=== PATIENT | female | born 1985 | race Two or more races ===

== ENCOUNTER 2020-05-31 17:04 | Emergency (ER) | payer OTHER ==
[~2020-05-31] VITALS: Ht 167.6 cm; Wt 89.2 kg
--- NOTE | 2020-05-31 17:09 | PHYS DOC ---
Past History Past Medical History: Hypothyroid (JOSE MEJIA DO) Past Surgical History: Other (Thyroidectomy) (JOSE MEJIA DO) Adult General Chief Complaint Chief Complaint: SEIZURE HPI HPI Patient is a 34-year-old female who presents for seizure-like activity. Patient reports feeling fatigued for past 48 hours. Nothing known makes better or worse. Patient denies any pain. Patient reports being nauseous all day and was outside in the driveway when she started feeling lightheaded and dizzy. Patient reports sitting down because she does not feel well. Patient unsure of events afterwards. She reports gaining enough strength to call a friend to come and help her. On arrival, friend was concerned given patient's poor appearance and called EMS. Local fire department arrived first and reported less than 1 minute of seizure-like activity that resolved without any intervention. Patient otherwise stable and post ictal appearing in route to our facility for evaluation. On arrival, patient continues to feel fatigued, admits recent dizziness, chills, rhinorrhea, nausea without any changes in bladder or bowel function, no vomit, no urinary symptoms. Denies any recent alcohol or illicit drug use. Takes levothyroxine daily stemming from prior thyroidectomy from noncancerous causes, last time TSH was checked was greater than 1-3MO ago (JOSE MEJIA DO) HPI Pt. reports a similar incident in the past when she got dehydrated and had a viral infection. 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 Patient's dog Toaga- Bull dog recent had a upper respiratory infection which was treated with Carbomax antibiotic. (JOHANN BROWER MD) Review of Systems Review of Systems Fourteen body systems of review of systems have been reviewed. See HPI for pertinent positives and negative responses, other lehman all other systems are negative, non-pertinent or non-contributory (JOSE MEJIA DO) Physical Exam Physical Exam Constitutional: Pt is oriented to person, place, and time. Pt appears well- developed and well-nourished. Appears postictal HENT: Head: Normocephalic and atraumatic. Mouth/Throat: Oropharynx is clear and moist. No hematomas or lacerations or abrasions to face or scalp OP clear, no blood, no malocclusion, dentition intact, no trauma to the tongue Nares clear, no nasal septal hematoma TMs clear, no hemotympanum Midface stable Eyes: Conjunctivae and EOM are normal. Pupils are equal, round, and reactive to light. Neck: C-spine midline nontender, no step-offs Cardiovascular: Normal rate, regular rhythm and normal heart sounds. Pulmonary/Chest: Effort normal and breath sounds normal. No respiratory distress. No wheezes. CTA bilaterally Abdominal: Soft. Bowel sounds are normal. Pt exhibits no distension. There is no tenderness. Musculoskeletal: No bony tenderness to extremities, no deformities, full ROM extremities Chest wall stable Pelvis stable and non-tender No vertebral TTP and spine without stepoffs Neurological: Pt is alert and oriented to person, place, and time. Moving all extremities willfully, able to wiggle all fingers and toes Alert and oriented x 3 Sensation grossly intact Skin: Skin is warm and dry. No abrasions, no lacerations Psychiatric: Behavior is appropriate for situation Nursing note and vitals reviewed. (JOSE MEJIA DO) Current Patient Data Vital Signs Vital Signs Date Time Temp Pulse Resp B/P (MAP) Pulse Ox O2 Delivery O2 Flow Rate FiO2 05/31/20 17:09 99.0 85 16 141/93 (109) 99 Room Air (JOSE MEJIA DO) EKG EKG EKG ordered and interpreted by myself at 1721 hrs. as sinus rhythm 86 bpm, unremarkable intervals, no axis deviation, no fascicular blocks, no ischemic findings, no STEMI (JOSE MEJIA DO) Radiology/Procedures Radiology/Procedures PROCEDURE: CHEST AP ONLY EXAM: Chest, single view. HISTORY: Fatigue. COMPARISON: None. FINDINGS: A frontal view of the chest is obtained. There is no infiltrate, pleural effusion or pneumothorax. The heart is normal in size. There is incidental S-shaped thoracic scoliosis. IMPRESSION: No acute pulmonary finding. Electronically signed by: Monik Foote MD (05/31/2020 5:21 PM) [id number] (JOSE MEJIA DO) Radiology/Procedures [address] [address] IMAGING REPORT Signed PATIENT: LONG ARRIOLA ACCOUNT: [id number] : 1985 LOCATION: ER AGE: 34 SEX: F EXAM STATUS: PRE ER ORD. PHYSICIAN: JOSE MEJIA DO REASON: SEIZURE PROCEDURE: CT HEAD WO CONTRAST CT Head W/O Contrast: History: Reason: SEIZURE / Spl. Instructions: / History: Comparison: none Axial images were obtained without contrast. The ríos and white matter appears normal and symmetrical for the patients age. There is no mass effect, extraaxial fluid collections or hydrocephalus. There is no gross bleed. There is no focal loss of ríos-white matter distinction to suggest acute ischemia, i.e. stroke. Impression: No acute findings. PQRS Compliance Statement: One or more of the following individualized dose reduction techniques were utilized for this examination: 1. Automated exposure control 2. Adjustment of the mA and/or kV according to patient size 3. Use of iterative reconstruction technique Electronically signed by: Chuy Gaona III, MD (05/31/2020 5:58 PM) [facility] DICTATED AND SIGNED BY: CHUY GAONA III, MD DATE: 05/31/20 1296 CC: JOSE MEJIA DO ~ (JOHANN BROWER MD) Heart Score Risk Factors: Risk Factors: DM, Current or recent (<one month) smoker, HTN, HLP, family history of CAD, obesity. Risk Scores: Risk Factors: DM, Current or recent (<one month) smoker, HTN, HLP, family history of CAD, obesity. (JOSE MEJIA DO) Course & Med Decision Making Course & Med Decision Making Comprehensive history and physical exam performed by myself, initial work-up started prior to my shift ending Comprehensive signout given to oncoming physician, Dr. Brower. Please defer to his documentation regarding future care of this patient (JOSE MEJIA DO) Course & Med Decision Making Patient requesting discharge after fluid bolus. Stating she felt back to normal. Patient instructed not to drive or do any hazardous activity until reviewed by her primary care. Patient instructed return if any concerns. Patient must follow-up with her primary care at [place]. Patient push fluids and fruit juices. Take Tylenol ibuprofen for any fever or discomfort. Must self isolate for 10 days. Wear a mask that covers her nose and mouth at all times. Return if any concerns. Impression: 1. Hx of Syncope/ Possible Seizure Activity 2. Mild Dehydration 3. Viral syndrome (JOHANN BROWER MD) Dragon Disclaimer Dragon Disclaimer This electronic medical record was generated, in whole or in part, using a voice recognition dictation system. (JOSE MEJIA DO) Departure Departure: Disposition: 01 DC HOME SELF CARE/HOMELESS Condition: STABLE Scripts Ondansetron Hcl (ZOFRAN) 4 Mg Tablet 8 MG PO QIDPRN PRN for active n/v, #30 TAB Prov: JOHANN BROWER MD 05/31/20 Alliluis f Disclaimer This chart was dictated in whole or in part using Voice Recognition software in a busy, high-work load, and often noisy Emergency Department environment. It may contain unintended and wholly unrecognized errors or omissions. (JOHANN BROWER MD) JOSE MEJIA DO May 31, 2020 17:09 JOHANN BROWER MD May 31, 2020 19:11
[2020-05-31] MEDS ORDERED: IV NORMAL SALINE 1,000ML 1,000 ML IV ONE (17:15)
--- NOTE | 2020-05-31 17:25 | RAD ---
EXAM: Chest, single view. HISTORY: Fatigue. COMPARISON: None. FINDINGS: A frontal view of the chest is obtained. There is no infiltrate, pleural effusion or pneumothorax. The heart is normal in size. There is incidental S-shaped thoracic scoliosis. IMPRESSION: No acute pulmonary finding. Electronically signed by: Monik Foote MD (05/31/2020 5:21 PM) [id number]
--- NOTE | 2020-05-31 17:26 | EKG ---
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
[2020-05-31 17:47] LABS: CREATININE 1.1 mg/dL (0.6-1.0); GFR 57.6; POTASSIUM 3.5 mmol/L (3.5-5.1)
[2020-05-31 17:53] LABS: ALBUMIN/GLOBULIN RATIO 1.2 (1.0-1.7); TOTAL BILIRUBIN 0.3 mg/dL (0.2-1.0); TOTAL PROTEIN 7.4 g/dL (6.4-8.2)
[2020-05-31 18:00] LABS: BASO # 0.1 x10^3/uL (0.0-0.2); BASO % 1 % (0-3); EOS # 0.2 x10^3/uL (0.0-0.7); EOS % 2 % (0-3); HEMATOCRIT 38.7 % (36.0-47.0); HEMOGLOBIN 13.2 g/dL (12.0-15.5); LYMPH % 33 % (24-48); MEAN CORPUSCULAR HEMOGLOBIN 31 pg (25-35); MEAN CORPUSCULAR HGB CONC 34 g/dL (31-37); MEAN CORPUSCULAR VOLUME 90 fL (79-100); MONO # 0.7 x10^3/uL (0.0-1.1); MONO % 8 % (0-9); NEUT % 56 % (31-73); PLATELET COUNT 252 x10^3/uL (140-400); RED BLOOD COUNT 4.31 x10^6/uL (3.50-5.40); RED CELL DISTRIBUTION WIDTH 12.6 % (11.5-14.5); WHITE BLOOD COUNT 8.9 x10^3/uL (4.0-11.0)
--- NOTE | 2020-05-31 18:01 | RAD ---
CT Head W/O Contrast: History: Reason: SEIZURE / Spl. Instructions: / History: Comparison: none Axial images were obtained without contrast. The ríos and white matter appears normal and symmetrical for the patients age. There is no mass effect, extraaxial fluid collections or hydrocephalus. There is no gross bleed. There is no focal loss of ríos-white matter distinction to suggest acute ischemia, i.e. stroke. Impression: No acute findings. RS Compliance Statement: One or more of the following individualized dose reduction techniques were utilized for this examination: 1. Automated exposure control 2. Adjustment of the mA and/or kV according to patient size 3. Use of iterative reconstruction technique Electronically signed by: Alcides Fang III, MD (05/31/2020 5:58 PM) [facility]
[2020-05-31 18:07] LABS: BARBITURATES NEG (NEG); BENZODIAZEPINES NEG (NEG); CANNABINOIDS NEG (NEG); COCAINE NEG (NEG); METHADONE NEG (NEG); OPIATES NEG (NEG); PHENCYCLIDINE NEG (NEG)
[2020-05-31 18:08] LABS: AMPHETAMINE/METHAMPHETAMINE NEG (NEG)
[2020-05-31 18:10] LABS: BILIRUBIN,URINE NEG (NEG); CLARITY,URINE CLEAR; COLOR,URINE YELLOW; GLUCOSE,URINE NEG (NEG)
[2020-05-31 18:11] LABS: BACTERIA,URINE 0 /HPF (0-FEW); NITRITE,URINE NEG (NEG); RBC,URINE OCC /HPF (0-2); SQUAMOUS EPITHELIAL CELL,UR MOD /LPF; UROBILINOGEN,URINE 0.2 mg/dL (0.2 mg/dL); WBC,URINE OCC /HPF (0-4)
[2020-05-31 19:00] VITALS: BP 130/72
[2020-05-31] MEDS ORDERED: ONDA4TAB7 PO (19:30)
[2020-05-31 19:34] LABS: U PREG PATIENT NEGATIVE (NEG)
== END 2020-05-31 20:22 | disposition home or self-care (01) ==
LOC: ER 17:04
DX: E86.0 Dehydration (principal); B34.9 Viral infection, unspecified; Z20.828 Contact with and (suspected) exposure to other viral communicable diseases
CPT/HCPCS: 36415; 70450; 71045; 80053; 80307; 81001; 81025; 83605; 84146; 85025; 93005; 96360; 99285; C9803; J7030; U0003

== ENCOUNTER 2020-07-19 03:40 | Emergency (ER) | payer OTHER ==
[~2020-07-19] VITALS: Ht 157.5 cm; Wt 67.7 kg
[~2020-07-19 03:40] MED LIST: ONDA4TAB7 PO
--- NOTE | 2020-07-19 03:46 | PHYS DOC ---
Past History Past Medical History: Cancer, Hypothyroid Past Medical History Fever blisters Past Surgical History: Other Additional Past Surgical Histo: thyroidectomy- for cancer 2017 Smoking: Non-smoker Alcohol Use: None General Adult HPI: HPI: ".. I am having some abdomen pain.. ".. I ve had a upset stomach since yesterd ay.. I ve vomited 4 x times tonight..... and last vomiting episodes I had diarrhea all over the floor.." " We were out at [place] earlier with a big family reunion ... People all over with there... Some from [place].. [place] etc. But we did self isolate after we came back and my Covid was negative at [facility]. None animals have been taking care of have been specifically ill... I do not think I got a hold of any bad food but I sure had some gastroenteritis tonight.. I think I am a little dehydrated tonight..".." It just that I am having a lot of stomach cramps this morning.. .. 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 Patient presents with above hx and complaints of upset stomach,cramping, nausea, vomiting, and diarrhea. Patient has past medical history of seizure activity after previous gastrointestinal illness. Patient at that time was found to be dehydrated. Patient has history of hypothyroidism secondary to thyroidectomy 2017 for thyroid cancer. Patient occasionally gets cold sores. Patient denies any alcohol or drug or drug use. Does take levothyroxine daily. Is followed regularly at [facility] for her thyroid levels. Previous head CT evaluation on 05/31/2020 showed no acute findings. No one else in the home ill including pets. Has not been in contact with any animals at the [facility] that have had gastrointestinal illnesses. No history of bad food intake. 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 Most recent Covid test was negative. Patient is up-to-date with all vaccinations the requires. Patient states she is normally healthy. Patient denies any history immunosuppression. Pt. did previously had large family reunion in [place].. and people came from all over the world.. Patient denies any hiking trips or exposures to contaminated water while in [place]. Did self isolate after returning and Covid test was negative after self-isolation Review of Systems: Review of Systems: Constitutional: Denies fever or chills Eyes: Denies change in visual acuity HENT: Denies nasal congestion or sore throat Respiratory: Denies cough or shortness of breath Cardiovascular: Denies chest pain or edema GI: Complains of mild generalized abdominal pain, nausea, vomiting, and watery diarrhea : Denies dysuria Musculoskeletal: Denies back pain or joint pain Integument: Denies rash Neurologic: Denies headache, focal weakness or sensory changes Endocrine: Denies polyuria or polydipsia Lymphatic: Denies swollen glands Psychiatric: Denies depression or anxiety Family History: Family History: Noncontributory to presentations, exception child 4 yo had a cough recently. Current Medications: Current Meds: See nursing for home meds Allergies: Allergies: Allergies Coded Allergies Type Severity Reaction Last Updated Verified No Known Drug Allergies 05/31/20 No Physical Exam: PE: Constitutional: Well developed, well nourished, no acute distress, non-toxic appearance. [] HENT: Normocephalic, atraumatic, bilateral external ears normal, oropharynx dry,, no oral exudates, nose normal. [] Eyes: PERRLA, EOMI, conjunctiva normal, no discharge. [] Neck: Normal range of motion, no tenderness, supple, no stridor. Old thyroid surgery scar Cardiovascular:Heart rate regular rhythm, no murmur [] Lungs & Thorax: Bilateral breath sounds equal apex on auscultation [] Abdomen: Bowel sounds hyperactive, soft, mild generalized tenderness, no masses, no pulsatile masses. No rebound tenderness Skin: Warm, dry, no erythema, no rash. [] Back: No tenderness, no CVA tenderness. [] Extremities: No tenderness, no cyanosis, no clubbing, ROM intact, no edema. [] No psoas sign. Neurologic: Alert and oriented X 3, normal motor function, normal sensory function, no focal deficits noted. [] Psychologic: Affect anxious, judgement normal, mood normal. [] EKG: EKG: [] Radiology/Procedures: Radiology/Procedures: [] Heart Score: Risk Factors: Risk Factors: DM, Current or recent (<one month) smoker, HTN, HLP, family history of CAD, obesity. Risk Scores: Score 0 - 3: 2.5% MACE over next 6 weeks - Discharge Home Score 4 - 6: 20.3% MACE over next 6 weeks - Admit for Clinical Observation Score 7 - 10: 72.7% MACE over next 6 weeks - Early Invasive Strategies Course & Med Decision Making: Course & Med Decision Making Pertinent Labs and Imaging studies reviewed. (See chart for details) Patient stay on a clear fluid diet next 2 days. No solids. No milk products. Must allow bowel rest. Take Tylenol and ibuprofen as needed for discomfort. For marked discomfort may take a Vicoprofen. Zofran 8 mg up to 4 times a day for active vomiting . She may take [id number] Pepto-Bismol up to 4 times a day for episodes of diarrhea. Follow-up with [facility]. Return if any concerns. Push fluids. Impression: 1. Acute gastroenteritis-nausea vomiting diarrhea 2. History of hypothyroidism secondary to thyroidectomy 2016 for thyroid cancer 3. Mild dehydration [] Dragon Disclaimer: [place] Disclaimer: This electronic medical record was generated, in whole or in part, using a voice recognition dictation system. Departure Departure: Referrals: PCP,UNKNOWN (PCP) Scripts Ibuprofen (IBUPROFEN) 400 Mg Tablet 400 MG PO QIDPRN for fever, discomfort, #120 TAB Prov: JOHANN HALL MD 07/19/20 Acetaminophen (ACETAMINOPHEN) 500 Mg Tablet 1000 MG PO QIDPRN PRN for pain, fever, #120 TAB Prov: JOHANN HALL MD 07/19/20 Bismuth Subsalicylate (PEPTO-BISMOL) 525 Mg/15 Ml Oral.susp 525 MG PO QIDPRN PRN for DIARRHEA, #120 LIQUID Prov: JOHANN HALL MD 07/19/20 Ondansetron Hcl (ZOFRAN) 4 Mg Tablet 8 MG PO QIDPRN PRN for NAUSEA/VOMITING, #30 TAB Prov: JOHANN HALL MD 07/19/20 Hydrocodone/Ibuprofen (HYDROCODONE-IBUPROFEN 7.5-200 ) 1 Each Tablet 1 TAB PO PRN Q6HRS PRN for PAIN, #30 TAB 0 Refills Prov: JOHANN HALL MD 07/19/20 [place] Disclaimer This chart was dictated in whole or in part using Voice Recognition software in a busy, high-work load, and often noisy Emergency Department environment. It may contain unintended and wholly unrecognized errors or omissions. JOHANN HALL MD Jul 19, 2020 03:46
[2020-07-19] MEDS ORDERED: HYDR-1179 PO (04:44)
[2020-07-19] MEDS ORDERED: BISM525O8 PO (04:44)
[2020-07-19] MEDS ORDERED: ONDA4TAB7 PO (04:44)
[2020-07-19 04:46] LABS: AMPHETAMINE/METHAMPHETAMINE NEG (NEG); BARBITURATES NEG (NEG); BENZODIAZEPINES NEG (NEG); CANNABINOIDS NEG (NEG); COCAINE NEG (NEG); METHADONE NEG (NEG); OPIATES NEG (NEG); PHENCYCLIDINE NEG (NEG)
[2020-07-19] MEDS ORDERED: IBUP400T18 PO (04:46)
[2020-07-19] MEDS ORDERED: ACET500T68 PO (04:46)
[2020-07-19 04:50] LABS: BACTERIA,URINE 0 /HPF (0-FEW); BILIRUBIN,URINE NEG (NEG); CLARITY,URINE CLEAR; COLOR,URINE COLORLESS; GLUCOSE,URINE NEG (NEG); NITRITE,URINE NEG (NEG); RBC,URINE 0 /HPF (0-2); SQUAMOUS EPITHELIAL CELL,UR OCC /LPF; UROBILINOGEN,URINE 0.2 mg/dL (0.2 mg/dL); WBC,URINE 0 /HPF (0-4)
[2020-07-19] MEDS ORDERED: KETOROLAC 30 MG/ML VIAL. IVP ONE (05:00)
[2020-07-19] MEDS ORDERED: ONDANSETRON PF 4 MG/2 ML VIAL. IVP ONE (05:00)
[2020-07-19] MEDS ORDERED: FAMOTIDINE 20 MG/2 ML VIAL IVP ONE (05:00)
[2020-07-19] MEDS ORDERED: HYDROcodone/APAP 5/325MG 1 TAB TABLET PO ONE (05:00)
[2020-07-19] MEDS ORDERED: IV RINGERS SOLUTION,LACTATED 1,000 ML IV SCH (05:00)
[2020-07-19 05:25] LABS: BASO # 0.1 x10^3/uL (0.0-0.2); BASO % 1 % (0-3); EOS # 0.1 x10^3/uL (0.0-0.7); EOS % 1 % (0-3); HEMATOCRIT 38.9 % (36.0-47.0); LYMPH # 2.4 x10^3/uL (1.0-4.8); LYMPH % 34 % (24-48); MEAN CORPUSCULAR HEMOGLOBIN 30 pg (25-35); MEAN CORPUSCULAR HGB CONC 34 g/dL (31-37); MEAN CORPUSCULAR VOLUME 89 fL (79-100); MONO # 0.6 x10^3/uL (0.0-1.1); MONO % 8 % (0-9); NEUT # 3.9 x10^3uL (1.8-7.7); NEUT % 56 % (31-73); PLATELET COUNT 238 x10^3/uL (140-400); RED BLOOD COUNT 4.35 x10^6/uL (3.50-5.40)
[2020-07-19 05:29] LABS: CALCIUM 8.4 mg/dL (8.5-10.1); CREATININE 1.2 mg/dL (0.6-1.0); GFR 51.7; POTASSIUM 3.6 mmol/L (3.5-5.1)
[2020-07-19 05:32] LABS: ALBUMIN 3.7 g/dL (3.4-5.0); DIRECT BILIRUBIN 0.1 mg/dL (0.0-0.2); TOTAL BILIRUBIN 0.3 mg/dL (0.2-1.0); TOTAL PROTEIN 6.8 g/dL (6.4-8.2)
[2020-07-19 05:45] VITALS: BP 101/61
== END 2020-07-19 05:58 | disposition home or self-care (01) ==
LOC: ER 03:40
DX: K52.9 Noninfective gastroenteritis and colitis, unspecified (principal); R11.2 Nausea with vomiting, unspecified; E86.0 Dehydration; E03.9 Hypothyroidism, unspecified; Z90.89 Acquired absence of other organs; Z85.9 Personal history of malignant neoplasm, unspecified; Z98.890 Other specified postprocedural states
CPT/HCPCS: 36415; 80048; 80076; 80307; 81001; 81025; 85025; 86705; 86709; 86803; 87340; 96361; 96374; 96375; 99285; J1885; J2405; J3490; J7120